=== PATIENT | female | born 1965 ===

== ENCOUNTER 2019-06-27 10:05 | Outpatient (CLI) | payer OTHER | END 2019-06-27 10:06 | disposition home or self-care (01) | LOC: SONOGRAMA 10:05 | DX: E04.1 Nontoxic single thyroid nodule (principal) ==

== ENCOUNTER 2024-09-08 15:16 | Outpatient (CLI) | payer OTHER | END 2024-09-08 15:19 | disposition home or self-care (01) | LOC: SONOGRAMA 15:16 | PROVIDERS: ATTEND Pathology Anatomic Pathology | DX: D34 Benign neoplasm of thyroid gland (principal); E07.89 Other specified disorders of thyroid; R59.0 Localized enlarged lymph nodes; E04.2 Nontoxic multinodular goiter ==